=== PATIENT | female | born 1970 | race Caucasian/White ===

== ENCOUNTER 2016-08-09 18:52 | Emergency (ER) | payer BC ==
--- NOTE | ~2016-08-09 | ER ---
PATIENT'S NAME: [facility] AGE: 46 Y [address] ROOM: [place] [id number] LOCATION: [facility] ADMIT DATE: 08/09/2016 ER/Outpatient Report DISCHARGE DATE: 08/09/2016 FAMILY PHYSICIAN: PHYSICIAN, NO ATTENDING PHYSICIAN: Clarisa Ha Time of Arrival: 1852 hours. Time of Evaluation: 1909 hours. IDENTIFICATION: A 46-year-old female. CHIEF COMPLAINT: Right lower abdominal pain radiating to her back. HISTORY OF PRESENT ILLNESS: The patient has had right lower quadrant pain off and on for the last 1 week that radiates to her back. She has had nausea when she eats, no vomiting. She has had some loose stools. No blood in her stools. No dark, tarry, or black stools. No dysuria. No hematuria. She has never had pain like this before, but she said it has been coming and going for the last week. PAST MEDICAL HISTORY: ALLERGIES: PENICILLIN. CURRENT MEDICATIONS: Natural hormone. MEDICAL PROBLEMS: Denies. PRIOR SURGERIES: Cholecystectomy, 2 sections, hysterectomy and oophorectomy, and exploratory laparotomy, SOCIAL HISTORY: The patient lives here in [place]. Works at [employer]. Tobacco use, half pack per day. Alcohol use, denies. Drug use, denies. FAMILY HISTORY: No pertinent family history. REVIEW OF SYSTEMS: PATIENT'S NAME: [facility] AGE: 46 Y [address] ROOM: [place] [address] LOCATION: [facility] ADMIT DATE: 08/09/2016 ER/Outpatient Report DISCHARGE DATE: 08/09/2016 FAMILY PHYSICIAN: PHYSICIAN, NO ATTENDING PHYSICIAN: Clarisa Ha All systems reviewed and negative other than what is noted in the HPI. PHYSICAL EXAMINATION: VITAL SIGNS: Height 5 feet 2 inches and weight 65.5 kg. Blood pressure 134/87, pulse 78, respirations 16, temperature 98.1, sats 97%. GENERAL: A 46-year-old female in mild distress. HEENT: Head: Normocephalic, atraumatic. Ears: TMs not visualized. Eyes: Pupils equal and reactive to light and accommodation. Extraocular movements are intact. Nose: Mucosa pink. No lesions or drainage. Mouth: No lesions. Pharynx benign. NECK: Supple. No lymphadenopathy. LUNGS: Clear to auscultation. Breath sounds are equal. HEART: Regular rate and rhythm. No murmur, rub, or gallop. ABDOMEN: Bowel sounds are present. Soft, nondistended, tender to palpation in the right lower quadrant. No rebound or guarding. Some CVA tenderness. SKIN: [place], warm, and dry. No lesions or rashes noted. NEURO: No focal deficit. No lower extremity edema. The patient refused any pain medication. LABORATORY DATA AND X-RAY: Hemoglobin 14, hematocrit 41.8, platelets 311, white count 6.3 with a normal differential. Sodium 143, potassium 3.9, chloride 111, CO2 of 25, BUN 18, creatinine 0.8, blood sugar 88. Liver enzymes are normal. Amylase 47, lipase 212. UA specific gravity 1.025, pH 5, 2-5 white cells, 2-5 red cells, 5-[address] scan of the abdomen and pelvis, stone protocol, normal appendix, no acute abnormality. IMPRESSION AND PLAN: Right lower quadrant pain, uncertain etiology. No acute findings identified on lab or CT scan. The patient declined any pain medicine here. Warm compresses. No heavy lifting. Tylenol or Advil for pain. Follow up at [facility] next week. Follow up sooner if any problems or concerns. CLARISA HA MD CAR/modl /[id number] d: 08/10/16 0321 t: 08/10/16 0512, OUTPATIENT REPORT
[~2016-08-09 18:52] MED LIST: ALLERGY10 M1 PO; NORCO 5-325 MG1 TAB PO
[2016-08-09 19:22] LABS: BASOPHIL # 0.1 K/uL (0.0-0.2); BASOPHIL % 1.4 %; EOSINOPHIL # 0.3 K/uL (0.0-0.5); EOSINOPHIL % 5.4 %; HEMATOCRIT 41.8 % (33.0-46.0); IMMATURE GRANULOCYTE % 0.2 %; LYMPHOCYTE # 2.3 K/uL (0.8-4.0); LYMPHOCYTE % 37.1 %; MCH 29.9 pg (27.0-34.0); MCHC 33.5 gm/dL (32.0-36.5); MCV 89.3 fl (83.0-98.0); MONOCYTE # 0.5 K/uL (0.0-1.0); MONOCYTE % 7.9 %; MPV 9.7 fl (9.4-12.4); NRBC % 0 /100WBC (0-0.00); PLATELET COUNT 311 K/uL (150-450); RBC 4.68 M/uL (3.50-5.50); RDW-CV 12.6 % (11.9-14.6); WBC 6.3 K/uL (4.0-11.0)
[2016-08-09 19:37] LABS: BILIRUBIN URINE NEGATIVE (NEGATIVE); BLOOD URINE 25 /UL (NEGATIVE); COLOR URINE YELLOW (YELLOW); GLUCOSE URINE NEGATIVE (NEGATIVE); KETONE URINE NEGATIVE (NEGATIVE); LEUKOCYTES URINE 25 /UL (NEGATIVE); NITRITE URINE NEGATIVE (NEGATIVE); PROTEIN URINE NEGATIVE (NEGATIVE); SPEC GRAVITY URINE 1.025 (1.003-1.035); TURBIDITY URINE CLEAR (CLEAR); UROBILINOGEN URINE NORMAL (NORMAL)
[2016-08-09 19:38] LABS: ALBUMIN 4.3 gm/dL (3.5-5.0); ALK PHOS 78 IU/L (33-138); ALT 27 IU/L (12-78); ANION GAP 10.9 (10.0-19.0); AST 17 IU/L (10-40); BLOOD UREA NITROGEN 18 mg/dL (6-24); CALCIUM 8.7 mg/dL (8.5-10.5); CHLORIDE 111 mMol/L (96-110); CO2 25 mMol/L (22-32); CREATININE 0.8 mg/dL (0.5-1.1); ESTIMATED GFR (MDRD EQUATION) > 60; POTASSIUM 3.9 mMol/L (3.7-5.1); SODIUM 143 mMol/L (135-145); TOTAL BILIRUBIN 0.4 mg/dL (0.0-1.5); TOTAL PROTEIN 7.2 g/dL (6.0-8.4)
[2016-08-09 19:44] LABS: AMORPHOUS URINE 1+ (NEGATIVE); BACTERIA URINE FEW (NEGATIVE)
== END 2016-08-09 21:19 | disposition disaster alternative care site (69) ==
LOC: GMED 18:52
PROVIDERS: Family Medicine
DX: R10.31 Right lower quadrant pain (principal); F17.210 Nicotine dependence, cigarettes, uncomplicated; Z88.0 Allergy status to penicillin; Z90.49 Acquired absence of other specified parts of digestive tract; Z90.710 Acquired absence of both cervix and uterus